=== PATIENT | male | born 2000 | race Caucasian/White ===

== ENCOUNTER 2024-11-17 13:29 | Emergency (ER) | payer MEDICAID, OTHER ==
[~2024-11-17] VITALS: Ht 177.8 cm; Wt 101.9 kg
[2024-11-17 13:42] VITALS: PULSE 71; TEMP 98.4
[2024-11-17 15:43] LABS: BILIRUBIN,URINE NEGATIVE (Neg); CLARITY,URINE CLEAR (Clear); COLOR,URINE YELLOW (Yellow); GLUCOSE, URINE NEGATIVE (Neg); KETONES,URINE NEGATIVE (Neg); LEUKOCYTE ESTERASE ,URINE NEGATIVE (Neg); NITRITES, URINE NEGATIVE (Neg); OCCULT BLOOD,URINE NEGATIVE (Neg); PROTEIN,URINE NEGATIVE (Neg); UROBILINOGEN,URINE 0.2 E.U/dL (0.2-1.0)
[2024-11-17 15:50] LABS: UA COLLECTION TYPE NON-SPECIFIED
[2024-11-17] MEDS: ketorolac trometh 15mg/ml vial 15 MG/ML ML IM ONE (17:44)
[2024-11-17 17:45] VITALS: BP 120/75; RESP 16; O2SAT 99
[2024-11-20 05:08] LABS: CHLAMYDIA TRACHOMATIS, NAA Negative (Negative)
== END 2024-11-17 17:45 | disposition home or self-care (01) ==
LOC: ER 13:30
DX: K13.79 Other lesions of oral mucosa (principal); R21 Rash and other nonspecific skin eruption
CPT/HCPCS: 36415; 81003; 86592; 87491; 87591; 96372; 99283; J1885